=== PATIENT | male | born 1990 | race Caucasian/White ===

== ENCOUNTER 2017-09-10 19:05 | Emergency (ER) | payer SELFPAY ==
--- NOTE | 2017-09-10 19:54 | EDM.PDOC ---
ED HPI GENERAL MEDICAL PROBLEM - General Chief Complaint: Skin Complaint Stated Complaint: SWOLLEN FACE Time Seen by Provider: 09/10/17 19:17 Source of Information: Reports: Patient, RN Notes Reviewed History Limitations: Reports: Language Barrier (Difficult to understand) - History of Present Illness INITIAL COMMENTS - FREE TEXT/NARRATIVE: The patient states that he noticed a pimple on his left cheek about 4 days ago. He states that it was a small pustule yesterday, which he popped, leaving a small amount of purulent fluid. Since then, however, his entire left cheek has become swollen and erythematous. Today, it is significant. No recent fever. The patient states that he has been applying rubbing alcohol to the area 4-5 times a day for the past 2 days. He applied Neosporin ointment yesterday morning , and hydrocortisone cream this morning. No prior similar symptoms. The patient does not have a PCP. Left Face Pain Score (Numeric/FACES): 7 - Related Data Allergies Allergy/AdvReac Type Severity Reaction Status Date / Time beeswax Allergy Airway Verified 09/10/17 19:16 Tightness Home Meds: Home Meds Inhaler? 09/10/17 [History] Past Medical History Respiratory History: Reports: Asthma (suspected) Psychiatric History: Reports: ADHD, Anxiety Social & Family History - Tobacco Use Smoking Status *Q: Current Every Day Smoker Years of Tobacco use: 12 Packs/Tins Daily: 1.5 Packs/Tins Daily Comment: Down from 4 ppd - Alcohol Use Alcohol Use History: Yes Alcohol Use Frequency: Socially - Recreational Drug Use Recreational Drug Use: No - Living Situation & Occupation Living situation: Reports: Single, Alone Occupation: Employed (carpentry foreman) ED ROS GENERAL - Review of Systems Review Of Systems: See Below Constitutional: Reports: No Symptoms HEENT: Reports: No Symptoms Respiratory: Reports: No Symptoms Cardiovascular: Reports: No Symptoms Endocrine: Reports: No Symptoms GI/Abdominal: Reports: No Symptoms : Reports: No Symptoms Musculoskeletal: Reports: No Symptoms Skin: Reports: No Symptoms Neurological: Reports: No Symptoms Psychiatric: Reports: No Symptoms Hematologic/Lymphatic: Reports: No Symptoms Immunologic: Reports: No Symptoms ED EXAM, SKIN/RASH Exam: See Below Exam Limited By: No Limitations General Appearance: Alert, WD/WN, No Apparent Distress Eye Exam: Bilateral Eye: Normal Inspection Ears: Normal External Exam, Normal Canal, Hearing Grossly Normal, Normal TMs Nose: Normal Inspection, No Blood Throat/Mouth: Normal Inspection, Normal Lips, Normal Voice, No Airway Compromise Head: Atraumatic, Other (The left cheek is significantly erythematous, measuring approximate 6 cm x 4 cm. The center of this is indurated, measuring approximately 3.5 cm in diameter. In the center of the indurated area, is a small open area, but with no active purulent drainage. No drainage with palpating around the open area.) Course - Vital Signs Last Recorded V/S: Last Vital Signs Temp 36.9 C 09/10/17 19: Pulse 115 H 09/10/17 19: Resp BP 145/85 H 09/10/17 19: Pulse Ox 98 09/10/17 19:17 - Re-Assessments/Exams Free Text/Narrative Re-Assessment/Exam: 09/10/17 19:50 The patient has a soft tissue infection to his left cheek. There is induration to the wound, but no fluctuance that I can drain. The patient does not appear to be at increased risk for MRSA exposure; he does not use antibacterial soaps, he has not recently been hospitalized or visited someone in a hospital or group home, and he does not recall exposure to someone with a skin infection. I will prescribe Keflex for the patient - he would [facility], as he is leaving for [place] soon as he is discharged here. I'm recommending he apply warm compresses several times a day, and I will refer him to Dr. Sargent for follow-up, although it sounds like he is going to be in [place] for some time. Departure - Departure Time of Disposition: 19:51 Disposition: Home, Self-Care 01 Condition: Good Clinical Impression: Facial infection - Discharge Information Referrals: PCP,None [Primary Care Provider] - Pernell Sargent MD [Physician] - Forms: ED Department Discharge Additional Instructions: You were seen in the emergency room for a left facial infection. Take the prescribed antibiotic Keflex, one tablet every 6 hours, as prescribed. Apply a warm compress to the affected area for 10-15 minutes, 4 or 5 times a day. Keep your face clean with ordinary soap and water. DO NOT apply Gaudencio Sporin or hydrocortisone cream to your face. DO NOT try to pop the wound if it fills up again, however, it is possible that it will pop on its own - that's okay. We recommend that you follow-up with the surgeon Dr. Sargent, or your own surgeon, this week or early next week. If any other problems, please do not hesitate to return to the ER.
== END 2017-09-10 20:03 | disposition home or self-care (01) ==
LOC: JD.ED 19:05
DX: L08.9 Local infection of the skin and subcutaneous tissue, unspecified (principal); F17.210 Nicotine dependence, cigarettes, uncomplicated; J45.909 Unspecified asthma, uncomplicated; Z91.030 Bee allergy status
CPT/HCPCS: 99283